=== PATIENT | male | born 1985 | race Caucasian/White ===

== ENCOUNTER → 2024-06-11 13:11 | Outpatient (REF) | payer BC, SELFPAY | LOC: RAD 13:11 | PROVIDERS: ATTENDING PHYSICIAN Nurse Practitioner Family | DX: M71.21 Synovial cyst of popliteal space [Baker], right knee (principal) | CPT/HCPCS: 93971 ==

== ENCOUNTER → 2025-07-27 06:59 | Outpatient (REF) | payer BC, SELFPAY | LOC: MRI 3T 06:59 | PROVIDERS: ATTENDING PHYSICIAN Physician Assistant Surgical; FAMILY PHYSICIAN Family Medicine | DX: M25.551 Pain in right hip (principal) | CPT/HCPCS: 73721 ==